=== PATIENT | male | born 1940 | race Caucasian/White ===

== ENCOUNTER 2018-01-06 04:48 | Emergency (ER) | payer MEDICARE ==
[~2018-01-06 04:48] MED LIST: ATOR10 PO; Juice Plus PO; MAGN250T10 PO; MELA3TAB69 PO; METF-444 PO; METO-408 PO; PANT40TA25 PO; UBID100C10 PO
[2018-01-06 05:08] LABS: HEMATOCRIT 38.2 % (42-54); LYMPHOCYTES % (AUTO) 11.3 % (21.0-51.0); MEAN CORPUSCULAR HEMOGLOBIN 31.3 pg (27.0-33.0); MEAN CORPUSCULAR HGB CONC 33.6 g/dL (32.0-36.0); MEAN CORPUSCULAR VOLUME 93.3 fL (79-99); MONOCYTES % (AUTO) 9.6 % (3.0-13.0); NEUTROPHILS % (AUTO) 75.1 % (40.0-77.0); PLATELET COUNT (AUTO) 298 K/uL (130-400); RED CELL DISTRIBUTION WIDTH 13.4 % (11.0-15.5); WHITE BLOOD COUNT (AUTO) 10.9 K/uL (4.8-10.8)
[2018-01-06] MEDS ORDERED: ASPIRIN 325 MG TABLET ONE (05:11)
[2018-01-06 05:17] LABS: CREATININE 1.1 mg/dL (0.5-1.5); POTASSIUM 4.1 mmol/L (3.5-5.1)
[2018-01-06 05:26] LABS: INR 0.95 (0.85-1.15); PARTIAL THROMBOPLASTIN TIME 28.7 SEC (26.3-35.5)
[2018-01-06 05:30] LABS: ALBUMIN 3.8 g/dL (3.5-5.0); BILIRUBIN,TOTAL 0.4 mg/dL (0.2-1.0); TOTAL PROTEIN, SERUM 7.5 g/dL (6.0-8.3)
== END 2018-01-06 06:19 | disposition home or self-care (01) ==
LOC: EDH 04:48
DX: R07.89 Other chest pain (principal); I25.10 Atherosclerotic heart disease of native coronary artery without angina pectoris; E11.9 Type 2 diabetes mellitus without complications; K21.9 Gastro-esophageal reflux disease without esophagitis; E78.5 Hyperlipidemia, unspecified; I10 Essential (primary) hypertension; Z95.1 Presence of aortocoronary bypass graft; Z98.890 Other specified postprocedural states
CPT/HCPCS: 36415; 71045; 80053; 82550; 83690; 83874; 83880; 84484; 85025; 85610; 85730; 93005; 94761